=== PATIENT | female | born 1985 | race Two or more races ===

== ENCOUNTER 2023-12-20 17:04 | Emergency (ER) | payer OTHER ==
[~2023-12-20] VITALS: Ht 165.1 cm; Wt 81.0 kg
[2023-12-20 18:24] VITALS: BP 130/80; PULSE 83; RESP 16; O2SAT 96
[2023-12-20 18:39] VITALS: TEMP 98.3
== END 2023-12-20 19:04 | disposition home or self-care (01) ==
LOC: ER 17:11
DX: B34.9 Viral infection, unspecified (principal)